=== PATIENT | female | born 1980 | race Caucasian/White ===

== ENCOUNTER 2021-06-02 16:37 | Emergency (ER) | payer OTHER, SELFPAY ==
[2021-06-02 17:00] VITALS: BP 148/77; PULSE 84; RESP 20; TEMP 36.7; O2SAT 99
--- NOTE | 2021-06-02 17:13 | ED.FEMALEGU ---
HPI - Female Genitourinary General Chief complaint: Urogenital-Female Stated complaint: UTI Source: patient and RN notes reviewed Limitations: no limitations History of Present Illness HPI Narrative: The overweight patient, previously mostly healthy, presents with urinary symptoms. Patient states she has had gradual onset, since yesterday, , of urinary frequency, urgency and mild dysuria. This is like prior UTIs, unlike remote history of kidney stones. No fever, hematuria, significant LBP, abdominal pain vaginal discharge; surgical history remarkable only for C-sections. Symptoms are mild most noticeable with micturition Related Data Home Medications Medication Instructions Recorded Confirmed sumatriptan succinate 100 mg PO PRN PRN 06/02/21 06/02/21 Allergies Allergy/AdvReac Type Severity Reaction Status Date / Time Penicillins Allergy Unknown Verified 02/17/11 11:17 Sulfa (Sulfonamide Allergy Unknown Verified 02/17/11 11:17 Antibiotics) Review of Systems Review of Systems: The patient has been informed that they may have pre-hypertension or Hypertension based on a BP reading in the department. I recommend that the patient call the primary care provider listed on their discharge instructions or a physician of their choice this week to arrange follow up for further evaluation of possible pre-hypertension or Hypertension General/Constitutional: No weight loss,fever Eyes: N0: Redness,discharge Ears/Nose/Throat: No: Epistaxis,ear discharge Respiratory: Denies: Hemoptysis Gastrointestinal: No Vomiting, Bleeding-rectal Skin: No Lumps, eruption Neurologic: No Focal Weakness,Sz Hematologic: Denies: Petechiae/Purpura Psychiatric: No: Suicida ideationl All Other Systems: Reviewed and Negative PMFSH Past Medical History Medical History Vitamin D deficiency disease Social History Social History Smoking status: Former smoker Alcohol intake: current Comments At time of signature, agree with nursing past medical, surgical, social and family history. There is no relevant family history pertinent to the presenting complaint Exam Narrative: General Appearance: Well nourished/overweight, Conjunctiva clear Mouth/Throat: Normal appearing, Normal lips, Supple Respiratory: Airway patent, No respiratory distress Cardiovascular: RRR Abdomen: Soft, Non-tender, no CVAT Musculoskeletal: Full ROM Skin: Warm, Dry Neurological: A&O x3, Normal affect Course Vital Signs Vital signs: Vital Signs Temperature 98.1 F 06/02/21 17:00 Pulse Rate 84 06/02/21 17:00 Respiratory Rate 20 06/02/21 17:00 Blood Pressure 148/77 H 06/02/21 17:00 Pulse Oximetry 99 06/02/21 17:00 Temperature 98.1 F 06/02/21 17:00 Pulse Rate 84 06/02/21 17:00 Respiratory Rate 20 06/02/21 17:00 Blood Pressure 148/77 H 06/02/21 17:00 Pulse Oximetry 99 06/02/21 17:00 MDM - Female Genitourinary Lab Data Labs: Urine Glucose Negative Reference Range: Negative Urine Bilirubin Negative Reference Range: Negative Urine Ketone Negative Reference Range: Negative Urine Specific Gilmer 1.025 Reference Range:1.001-1.035 Urine Blood 2+ Reference Range: Negative * * Urine pH 6.0 Reference Range: 5.0-9.0 Urine Protein 1+ Reference Range: Negative Urine Urobilinogen
== END 2021-06-02 17:17 | disposition home or self-care (01) ==
PROVIDERS: Emergency Provider Emergency Medicine; PCP Emergency Medicine
DX: N30.00 Acute cystitis without hematuria (principal)
CPT/HCPCS: 81003; 87086; 87088; 99213; G0463

== ENCOUNTER → 2021-06-24 11:48 | Outpatient (CLI) | payer OTHER, SELFPAY ==
--- NOTE | ~2021-06-24 | MM_ITS ---
EXAMINATION: MM screening yaya BI w fred HISTORY: Screening TECHNIQUE: Craniocaudal and mediolateral oblique 3-D tomosynthesis images were obtained and synthetic 2-D images were generated. CAD analysis was submitted and interpreted. COMPARISON: No prior mammogram is available for comparison at this institution. BREAST PARENCHYMAL COMPOSITION: There are scattered areas of fibroglandular density. FINDINGS: There is no evidence of suspicious mass, calcification, or architectural distortion to sugg est malignancy in either breast. There has been no suspicious interval change. IMPRESSION: 1. No mammographic evidence of malignancy. 2. Recommend routine screening mammography in one year. BI-RADS Category 1: Negative Reviewed, dictated and finalized at location A.
== END ==
PROVIDERS: Visit Provider Nurse Practitioner
DX: Z12.31 Encounter for screening mammogram for malignant neoplasm of breast (principal)
CPT/HCPCS: 77063; 77067

== ENCOUNTER 2021-07-28 11:59 | Outpatient (CLI) | payer OTHER, SELFPAY ==
--- NOTE | ~2021-07-28 | XR_ITS ---
EXAMINATION: XR abdomen/kub 1V EXAM DATE: 07/28/2021 12:21 INDICATION: Gross hematuria. TECHNIQUE: Frontal projection(s) of the abdomen for interpretation. There is no prior study for eron nazario. FINDINGS: There is expected amount of colonic stool and gas. No small bowel dilation, nonobstructi ve bowel gas pattern. There are no suspicious calcifications identified. There is no organomegaly suspected. The bones are unremarkable. IMPRESSION: Unremarkable abdomen x-ray exam. Reviewed, dictated and finalized at location A. HELP DESK ASSOCIATE
== END 2021-07-28 12:00 | disposition home or self-care (01) ==
PROVIDERS: PCP Emergency Medicine; Visit Provider Urology
DX: R31.0 Gross hematuria (principal)
CPT/HCPCS: 74018

== ENCOUNTER 2022-06-13 11:05 | Outpatient (CLI) | payer OTHER, SELFPAY ==
[2022-06-13 19:36] LABS: Basophils Absolute Auto 0.1 K/mm3 (0.0-0.1); Basophils Percent Auto 0.4 % (0.2-1.2); Eosinophils Absolute Auto 0.1 K/mm3 (0-0.3); Eosinophils Percent Auto 0.9 % (0-4.4); Hematocrit 43.4 % (37.0-47.0); Hemoglobin 14.1 g/dL (12.0-15.0); Immature Granulocyte Absolute 0.04 K/mm3 (0.00-0.031); Immature Granulocyte Percent A 0.3 % (0-0.5); Lymphocytes Absolute Auto 4.13 K/mm3 (0.9-3.2); Lymphocytes Percent Auto 31.7 % (18.3-44.2); Mean Corpuscular HGB Conc 32.5 g/dl (32-36); Mean Corpuscular Volume 86.1 fl (80-100); Mean Platelet Volume 9.4 fl (7.4-10.4); Monocytes Absolute Auto 0.7 K/mm3 (0.1-0.6); Monocytes Percent Auto 5.4 % (2.6-8.5); Neutrophils Percent Auto 61.3 % (45.5-73.1); Platelet Count Result 338 k/mm3 (150-375); Red Blood Count 5.04 M/mm3 (4.2-5.4); Red Cell Distribution Width 15.2 % (11.5-14.5)
[2022-06-13 20:10] LABS: Vitamin D 25 Hydroxy 16.4 ng/mL
[2022-06-13 20:23] LABS: Alanine Aminotransferase 26 U/L (6-35); Albumin Level 4.5 g/dL (3.5-5.1); Alkaline Phosphatase 85 U/L (38-126); Anion Gap 10 mmol/L (8-16); Aspartate Amino Transferase 24 U/L (14-36); Bilirubin,Total 0.3 mg/dL (0.2-1.3); Blood Urea Nitrogen 10 mg/dL (7-17); Calcium 8.4 mg/dL (8.4-10.2); Carbon Dioxide 23 mmol/L (22-30); Chloride 104 mmol/L (98-107); Cholesterol 208 mg/dL (0-200); Estimated Glomerular Filt Rate > 60; Glucose 108 mg/dL (65-110); HDL Direct 42 mg/dL; Potassium 3.9 mmol/L (3.4-5.0); Sodium 137 mmol/L (137-145); Triglycerides 150 mg/dL (<150)
[2022-06-13 20:35] LABS: LDL Cholesterol Direct 123 mg/dL
[2022-06-13 20:56] LABS: Thyroid Stimulating Hormone 0.756 uIU/mL (0.465-4.680)
[2022-06-15 13:52] LABS: NIL 0.05 IU/mL; Quantiferon TB Plus, 1T NEGATIVE (NEGATIVE); TB1-NIL 0.02 IU/mL; TB2-NIL 0.04 IU/mL
== END 2022-06-13 11:06 | disposition home or self-care (01) ==
LOC: ANHGOSHLAB 11:09
PROVIDERS: PCP Internal Medicine; Visit Provider Clinical Nurse Specialist
DX: Z11.1 Encounter for screening for respiratory tuberculosis (principal); Z13.29 Encounter for screening for other suspected endocrine disorder; E55.9 Vitamin D deficiency, unspecified; Z13.220 Encounter for screening for lipoid disorders; F41.9 Anxiety disorder, unspecified
CPT/HCPCS: 36415; 80053; 80061; 82306; 84443; 85025; 86480

== ENCOUNTER → 2023-01-05 11:52 | Outpatient (CLI) | payer OTHER, SELFPAY ==
--- NOTE | ~2023-01-05 | MM_ITS ---
EXAMINATION: MM screening yaya BI w fred HISTORY: Screening mammogram TECHNIQUE: Craniocaudal and mediolateral oblique 3-D tomosynthesis images were obtained and synthetic 2-D images were generated. CAD analysis was submitted and interpreted. COMPARISON: 06/24/2021 BREAST PARENCHYMAL COMPOSITION: The breasts are heterogeneously dense, which may obscure small masses . FINDINGS: A stable low-density mass is noted in the anterior third of the upper outer right breast. N o suspicious mass, calcification, or architectural distortion are identified in either breast to sugg est malignancy. There has been no suspicious interval change. IMPRESSION: 1. No mammographic evidence of malignancy. 2. Recommend routine screening mammography in one year. BI-RADS Category 2: Benign finding(s). Reviewed, dictated and finalized at location A.
== END ==
PROVIDERS: PCP Clinical Nurse Specialist; Visit Provider Nurse Practitioner
DX: Z12.31 Encounter for screening mammogram for malignant neoplasm of breast (principal)
CPT/HCPCS: 77063; 77067

== ENCOUNTER 2023-11-12 11:01 | Outpatient (CLI) | payer OTHER, SELFPAY ==
[2023-11-12 14:06] LABS: Alanine Aminotransferase 25 U/L (6-35); Albumin Level 4.4 g/dL (3.5-5.1); Alkaline Phosphatase 90 U/L (38-126); Anion Gap 5 mmol/L (8-16); Aspartate Amino Transferase 47 U/L (14-36); Bilirubin,Total 0.4 mg/dL (0.2-1.3); Blood Urea Nitrogen 12 mg/dL (7-17); Calcium 9.6 mg/dL (8.4-10.2); Carbon Dioxide 30 mmol/L (22-30); Chloride 103 mmol/L (98-107); Cholesterol 204 mg/dL (0-200); Estimated Glomerular Filt Rate > 60; Glucose 154 mg/dL (65-110); HDL Direct 44 mg/dL; Potassium 4.4 mmol/L (3.4-5.0); Sodium 138 mmol/L (137-145); Triglycerides 114 mg/dL (<150)
[2023-11-12 14:09] LABS: Basophils Percent Auto 0.3 % (0.2-1.2); Eosinophils Absolute Auto 0.1 K/mm3 (0-0.3); Hematocrit 46.6 % (37.0-47.0); Hemoglobin 14.8 g/dL (12.0-15.0); Immature Granulocyte Absolute 0.06 K/mm3 (0.00-0.031); Immature Granulocyte Percent A 0.5 % (0-0.5); Lymphocytes Absolute Auto 3.85 K/mm3 (0.9-3.2); Lymphocytes Percent Auto 30.4 % (18.3-44.2); Mean Corpuscular HGB Conc 31.8 g/dl (32-36); Mean Corpuscular Hemoglobin 27.1 pg (26-34); Mean Corpuscular Volume 85.2 fl (80-100); Mean Platelet Volume 10.3 fl (7.4-10.4); Monocytes Absolute Auto 0.7 K/mm3 (0.1-0.6); Monocytes Percent Auto 5.8 % (2.6-8.5); Neutrophils Absolute Auto 7.9 K/mm3 (1.3-6.7); Platelet Count Result 316 k/mm3 (150-375); Red Blood Count 5.47 M/mm3 (4.2-5.4); Red Cell Distribution Width 15.6 % (11.5-14.5); White Blood Count 12.7 K/mm3 (4.5-10.0)
[2023-11-12 14:17] LABS: LDL Cholesterol Direct 135 mg/dL
[2023-11-12 15:03] LABS: Vitamin D 25 Hydroxy 59.5 ng/mL
[2023-11-12 18:35] LABS: Hemoglobin A1C 8.1 % (<5.7)
== END 2023-11-12 11:02 | disposition home or self-care (01) ==
LOC: ANHGOSHLAB 11:03
PROVIDERS: PCP Internal Medicine; Visit Provider Clinical Nurse Specialist
DX: E55.9 Vitamin D deficiency, unspecified (principal); R53.83 Other fatigue; Z13.220 Encounter for screening for lipoid disorders; Z13.29 Encounter for screening for other suspected endocrine disorder; R73.9 Hyperglycemia, unspecified
CPT/HCPCS: 36415; 80053; 80061; 82306; 83036; 84443; 85025

== ENCOUNTER 2024-03-31 13:31 | Outpatient (CLI) | payer OTHER, SELFPAY ==
--- NOTE | ~2024-03-31 | MM_ITS ---
EXAMINATION: MM screening yaya BI w fred HISTORY: Screening TECHNIQUE: Craniocaudal and mediolateral oblique 3-D tomosynthesis images were obtained and synthetic 2-D images were generated. CAD analysis was submitted and interpreted. COMPARISON: Comparison to multiple prior studies sequentially, with oldest reviewed study dated 12/2020. BREAST PARENCHYMAL COMPOSITION: Dense: The breasts are heterogeneously dense, which may obscure small masses FINDINGS: There is no evidence of suspicious mass, calcification, or architectural distortion to sugg est malignancy in either breast. There has been no suspicious interval change. IMPRESSION: 1. No mammographic evidence of malignancy. 2. Recommend routine screening mammography in one year. BI-RADS Category 1: Negative Reviewed, dictated and finalized at location B.
== END 2024-03-31 13:32 ==
PROVIDERS: PCP Clinical Nurse Specialist; Visit Provider Nurse Practitioner
DX: Z12.31 Encounter for screening mammogram for malignant neoplasm of breast (principal)
CPT/HCPCS: 77063; 77067

== ENCOUNTER 2024-03-31 15:00 | Outpatient (CLI) | payer OTHER, SELFPAY ==
[2024-03-31 16:51] LABS: Anion Gap 8 mmol/L (4-12); Blood Urea Nitrogen 15 mg/dL (7-17); Calcium 8.9 mg/dL (8.4-10.2); Carbon Dioxide 28 mmol/L (22-30); Chloride 100 mmol/L (98-107); Estimated Glomerular Filt Rate > 60; Glucose 198 mg/dL (65-110); Potassium 3.9 mmol/L (3.4-5.0); Sodium 136 mmol/L (137-145)
[2024-03-31 17:36] LABS: Creatinine Urine 92.6 mg/dL
[2024-03-31 17:39] LABS: MALB Creatinine Ratio 28.9 mg/g (0-30); Microalbumin Urine Random 26.8 mg/L (0-16.7)
[2024-03-31 21:54] LABS: Hemoglobin A1C 7.5 % (<5.7)
== END 2024-03-31 15:01 | disposition home or self-care (01) ==
LOC: ANHGOSHLAB 15:01
PROVIDERS: PCP Clinical Nurse Specialist; Visit Provider Clinical Nurse Specialist
DX: E11.9 Type 2 diabetes mellitus without complications (principal)
CPT/HCPCS: 36415; 80048; 82043; 83036

== ENCOUNTER 2024-09-24 09:08 | Outpatient (CLI) | payer BC, SELFPAY ==
--- OUTSIDE RECORDS SUMMARY | 2024-09-24 09:39 | XMS_ITS | Clinical Summary ---
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 Gender Identity Not on file Sexual Orientation Not on file Plan of Treatment Health Maintenance Due Date Last Done Comments Hepatitis C Virus (HCV) Screening 1981 TdaP Immunization 1981 Hepatitis B Immunization (1 of 3 - 19+ 3-dose series) 2000 Pap Smear 2002 Cervical Cancer Screening (CCS) 2011 HPV/Cotest 2011 Discussion re Starting/Frequ ency of Mammograms 2021 Influenza Immunization (#1) 2024 SARS-COV-2 Immunization ( season) 2024 11/17/2020 Respiratory Syncytial Virus (RSV) Immunization (Adult) (1 - 1-dose 75+ series) 2056 Meningococcal Immunization (ACWY) Aged Out No longer eligible based on patient's age to complete this topic Pneumococcal Immunization Combined Aged Out No longer eligible based on patient's age to complete this topic Rotavirus Immunization Aged Out No lo nger eligible based on patient's age to complete this topic
--- OUTSIDE RECORDS SUMMARY | 2024-09-24 09:39 | XMS_ITS | Referral Summary ---
Author Organization [facility] Address [address] [place] [address] Care Team Providers Care Bench Tool Maker Name Role Phone Jaswinder Do MD Primary Care Provider [phone] Source Comments [facility],non-owned Affiliates and Associated Physician Practices is amultiple site organization consisting of ambulatory clinics and hospital sitesin [place], [place], [place] and [place]. This disclosure is being madepursuant to the Care Everywhere program and may not contain all information available regarding this patient. Last updated 18.[facility] Allergies Active Allergy Reactions Criticality Noted Date Comments Penicillins Urticaria Medium 11/26/2017 Sulfa Drugs Urticaria Medium 11/26/2017 Medications * Be aware that medications may not be up to date on this document. Alwaysverify current medications with the patient. Medication Sig Dispensed Refills Start Date End Date Status SUMAtriptan Succinate (IMITREX PO) Active Topiramate (TOPAMAX PO) A ctive Social History Tobacco Use Types Packs/Day Years Used Date Smoking Tobacco: Former Smokeless Tobacco: Never Tobacco Cessation:Counseling Given: Yes Sex and Gender Information Value Date Recorded Sex Assigned at Not on file Gender Identity Not on file Sexual Orientation Not on file Last Filed Vital Signs Vital Sign Reading Time Taken Comments Blood Pressure 124/80 05/13/2020 11:28 AM CDT Pulse 86 05/13/2020 11:28 AM CDT Temperature 37 ??C (98.6 ??F) 05/13/2020 11:28 AM CDT Respiratory Rate 18 05/13/2020 11:28 AM CDT Oxygen Saturation 98% 05/13/2020 11:28 AM CDT Inhaled Oxygen Concentration - - Weight 104.3 kg (230 lb) 05/13/2020 11:28 AM CDT Height 154.9 cm (5' 1 ) 05/13/2020 11:28 AM CDT Body Mass Index 43.46 05/13/2020 11:28 AM CDT Plan of Treatment Not on file Administered Medications Care Teams Bench Tool Maker Relationship Specialty Start Date End Date Jaswinder Do MD [address] [place] [address] [address] [place] [address] PCP - General Internal Medicine 11/26/17
--- OUTSIDE RECORDS SUMMARY | 2024-09-24 09:39 | XMS_ITS | Patient Health Summary ---
Author Organization [facility] Address [address] [facility] [place] [address] Care Team Providers Care It Program Engagement Director Name Role Phone Jaswinder Do MD Primary Care Provider [phone] Note from [facility],non-owned Affiliates and Associated Physician Practices is amultiple site organization consisting of ambulatory clinics and hospital sitesin [place], [place], [place] and [place]. This disclosure is being madepursuant to the Care Everywhere program and may not contain all information available regarding this patient. Last updated 18.[facility] Allergies * Penicillins(Urticaria) -Medium Criticality * Sulfa Drugs(Urticaria) -Medium Criticality Medications * Be aware that medications may not be up to date on this document. Alwaysverify current medications with the patient. * SUMAtriptan Succinate (IMITREX PO) * Topiramate (TOPAMAX PO) Social History Tobacco Use Types Packs/Day Years [...] Mass Index 43.46 05/13/2020 11:28 AM CDT Procedures * SKIN TEST PPD - POINT OF CARE(Performed 05/13/2020) Performed for PPD screening test * SKIN TEST PPD - POINT OF CARE(Performed 11/28/2017) Performed for Screening for tuberculosis Results * (ABNORMAL) SKIN TEST PPD - POINT OF CARE (05/13/2020 11:55 AM CDT) Only the most recent of2 resultswithin the time period is included. PPD 10ml, abnormal Other MISCELLANEOUS SAMPLE S / Unknown 05/13/2020 11:55 AM CDT Silvano Antune[facility] [facility] - POINT OF CA RE ORDERABLES Care Teams It Program Engagement Director Relationship Specialty Start Date End Date Jaswinder Do MD [address] [place] [id number] PCP - General Internal Medicine 11/26/17
--- OUTSIDE RECORDS SUMMARY | 2024-09-24 09:39 | XMS_ITS | Clinical Summary ---
Author Organization [facility] Address [address] [place] [id number] Care Team Providers Care Alumni Coordinator Name Role Phone Unavailable Primary Care Provider Unavailabl e Social History Tobacco Use Types Packs/Day Years Used Date Smoking Tobacco: Never Assessed Comments Unknown Sex and Gender Information Value Date Recorded Sex Assigned at Not on file Legal Sex Female 7:48 PM CDT Gender Identity Not on file Sexual Orientation Not on file Plan of Treatment Health Maintenance Due Date Last Done Comments Cervical Cancer Screening Pa p Smear (Age 30 to 64) Every 3 Years 1981 Annual Physical 1984 Hepatitis C 1999 DTaP, Tdap and Td Vaccines ( 1 - Tdap) 2000 Hepatitis B Vaccines (1 of 3 - 19+ 3-dose series) 2000 Cervical Cancer Screening Pa p with HPV Testing (Age 30 to 64) Every 5 Years 2011 Cervical Cancer Screening with HPV 2011 Mammogram Screening 2021 COVID-19 Vaccine ( - 2023-2 5 season) 2024 Influenza Adult (#1) 2024 HPV Vaccines Aged Out No longer eligi ble based on patient's age to complete this topic Meningococcal B Vaccine Aged Out No l onger eligible based on patient's age to complete this topic Meningococcal Vaccine Aged Out No osito pau eligible based on patient's age to complete this topic Pneumococcal Vaccine: Pediat rics (0 to 5 Years) and At-Risk Patients (6 to 64 Years) Aged Out No longer eligible b ased on patient's age to complete this topic RSV Immunizations Under 20 Months Aged Out No longer eligible based on patient's age to complete this topic
--- OUTSIDE RECORDS SUMMARY | 2024-09-24 09:40 | XMS_ITS | Clinical Summary ---
Author Organization [facility] Address [address] [place] [address] Care Team Providers Care Instrument Person Name Role Phone Jaswinder Do MD Primary Care Provider [phone] Source Comments [facility],non-owned Affiliates and Associated Physician Practices is amultiple site organization consisting of ambulatory clinics and hospital sitesin [place], [place], [place] and [place]. This disclosure is being madepursuant to the Care Everywhere program and may not contain all information available regarding this patient. Last updated 18.[facility] Allergies Active Allergy Reactions Criticality Noted Date Comments Penicillins Urticaria Medium 11/26/2017 Sulfa Drugs Urticaria Medium 11/26/2017 Medications * Be aware that medications may not be up to date on this document. Alwaysverify current medications with the patient. Medication Sig Dispensed Refills Start Date End Date Status SUMAtriptan Succinate (IMITREX PO) Active Topiramate (TOPAMAX PO) A ctive Family History Medical History Relation Name Comments None Known Father None Known Mother Relation Name Status Comments Father Mother Social History Tobacco Use Types Packs/Day Years [...] 05/13/2020 11:28 AM CDT Plan of Treatment Health Maintenance Due Date Last Done Comments LIPID TESTING 1981 MAMMOGRAM 1981 PAP SMEAR 1981 HIV SCREENING 1996 HEPATITIS C SCREENING 05/17/1999 DTAP/TDAP/TD VACCINES (1 - Tdap) 2000 HEPATITIS B VACCINE (1 of 3 - 19+ 3-dose series) 2000 COVID-19 VACCINE ( - 2023-2 5 season) 2024 INFLUENZA VACCINE (#1) 2024 DEPRESSION SCREENING 08/20/2024 ZOSTER VACCINE (1 of 2) 2031 HIB VACCINE Aged Out No longer eligi ble based on patient's age to complete this topic HPV VACCINE Aged Out No longer eligi ble based on patient's age to complete this topic MENINGOCOCCAL (Group B) VACCINE Aged Out No longer eligible based on patient's age to complete this topic MENINGOCOCCAL VACCINE Aged Out No osito pau eligible based on patient's age to complete this topic PNEUMOCOCCAL VACCINE Aged Out No long er eligible based on patient's age to complete this topic Care Teams Instrument Person Relationship Specialty Start Date End Date Jaswinder Do MD Count includes the [facility] [facility] [address] [place], [place] [id number] PCP - General Internal Medicine 11/26/17
[2024-10-02 08:00] VITALS: BMI 42.5
--- NOTE | 2024-10-02 08:00 | P.SLEEP_ITS ---
Sleep Study - Home Unattended Date of Study: 09/24/24 Ordering Provider: JOSE Rutledge Interpreting Provider: Dee Casper DO Home Sleep Study Type: Watch PAT Height: 1.55 m Weight: 102.058 kg Body Mass Index: 42.5 Neck Circumference (inches): 18 Drummond: 11 Reason for Sleep Study Daytime hypersomnia Sleep History The patient is a 44-year-old female that had a sleep study ordered by the pulmonary group for evaluation of sleep apnea. The patient admits to snoring loudly and excessive daytime sleepiness. She does have interruptions in breathing while asleep. She does choke or gasp at night. She denies having trouble breathing on her back. She does have morning headaches. She does have a dry or sore mouth / throat in the morning. She denies nocturnal heartburn. She denies nocturia. She denies having difficulty falling asleep. She does have difficulty staying asleep. She does have difficulty returning to sleep if she wakes up throughout the night. She denies having difficulty waking up too early without alarm. She denies any hypnotic or sedative use. She denies feeling anxious about sleep. She does feel tired or sleepy during the day. She does feel tired in the morning. She does have the urge to fall asleep during the day. She does feel drowsy while driving. She denies sleep paralysis, cataplexy and hypnagogic/ hypnopompic hallucinations. She denies clenching or grinding her teeth. She denies kicking or jerking her legs excessively. She denies having a restless feeling in her legs. The patient goes to bed at midnight on work days and at 1:00 a.m. on his days off. It takes her 45 minutes to fall asleep. She gets 5 hours of sleep on her work days and 6 hours of sleep on her days off. Her sleep is somewhat restorative on her days off. She denies taking any planned naps. She denies dream enactment behavior. She denies sleep walking. She consumes 3-4 cups of caffeinated beverage per day. She smokes 6-20 cigarettes per day. She denies alcohol use. She denies exercising on a regular basis [facility] Past Medical History Medical History Diabetes mellitus Hypertension Obstructive sleep apnea syndrome Vitamin D deficiency disease Social History Social History Smoking status: Current every day smoker (1 Daily ) Tobacco type: cigarettes Additional smoking assessment comments: 4 cigarettes a day per patient Alcohol intake: never Substance use: never Substance use type: does not use Lack of Transportation: No Lack of Food: Never True Current Housing: I Have Housing Concerned About Future Housing: No Difficulty Paying Gas/Electric Bills: No Difficulty Paying for Meds: No Currently Unemployed: No Education: Master's Degree or Higher Difficulty w/ Childcare or Family Care: No Medications Home Medications ?Medication ?Instructions ?Recorded ?Confirmed ?Type fluticasone propionate 50 1 spray intranasal DAILY #16 grams 05/17/22 08/06/24 Rx mcg/actuation nasal spray,suspension (Flonase Allergy Relief) sertraline 100 mg tablet 100 mg PO DAILY #90 tabs 11/12/23 08/06/24 Rx blood-glucose meter,continuous #1 ea 11/28/23 08/06/24 Rx (FreeStyle Sukh 3 [place]) blood sugar diagnostic (FreeStyle #100 ea 03/26/24 08/06/24 Rx Lite Strips) blood-glucose sensor (FreeStyle #6 ea 03/26/24 08/06/24 Rx Sukh 3 Sensor device) pravastatin 10 mg tablet 10 mg PO QHS #90 tabs 03/31/24 08/06/24 Rx metformin 500 mg tablet 500 mg PO BID 06/18/24 08/06/24 History semaglutide 0.25 mg or 0.5 mg (2 0.25 mg subcut WEEKLY 06/18/24 08/06/24 History mg/3 mL) subcutaneous pen injector (Ozempic) sumatriptan succinate 100 mg tablet See Rx Instructions .Route 06/18/24 08/06/24 Rx .COMPLEX #14 tabs metformin 500 mg tablet 500 mg PO BID 08/06/24 08/06/24 History Sleep Procedure The sleep study was completed using AIRVENDPAT a technically adequate device with seven channels: peripheral arterial tone, actigraphy, body position, snore, respiratory movement, pulse oximetry, sleep staging, and heart rate. Prior to using the device, the patient received verbal and written instructions for its application and was provided with the help desk phone number for additional telephonic instruction with 24-hour availability of qualified personnel to answer questions. The study was scored using CMS guidelines. Sleep Architecture The total recording time is 6 hrs, 25 min. The total sleep time is 5 hrs, 52 min. Sleep latency is 17 minutes. REM latency is 92 minutes. The patient had 4 episodes of waking. Sleep architecture shows 4.1% deep sleep, 78.8% light sleep, and (as % Total Sleep Time) showed NREM (Light 78.8%; Deep 4.1%), and a 17.0% stage REM. The patient spent 65.2% of total sleep time in the supine position. Sleep efficiency was 91.43. Respiratory Analysis The overall AHI (pAHI 4%:) is 73.0. The overall AHI (pAHI 3%:) is 111.1. The central AHI is 5.8. The AHI was 111.2 in NREM and 111.0 in REM sleep. The AHI was 117.3 in Supine and 99.6 in Non-supine sleep. Percent of Marcin Hardy respirations is 0.0. Oximetry Data The oxygen desaturation index (STEVO 4%:) is 83.6. The mean saturation is 93%, and the lowest saturation is 76%. Time spent with saturation < 88% is 11.1 minutes. Snoring Profile Snoring average intensity is 56 dB. The patient snored above 45 decibels for 310.2 minutes, 88.1% of sleep time. Cardiac Profile The average pulse rate is 75 beats per minutes. The lowest pulse rate is 57 bpm. The highest pulse rate reported is 97 bpm. Atrial fibrillation was not detected. Premature beats occur <0.1 per minute. Assessment and Plan Assessment and Plan (1) Obstructive sleep apnea syndrome: Code(s): G47.33 - Obstructive sleep apnea (adult) (pediatric) Status: Acute Assessment and Plan: The patient had an overall AHI 73.0 with desaturation down to 76%. The patient had a central apnea index of 5.8 to, which is elevated (normal < 5). This is consistent with severe sleep apnea. Due to the severity of the patient's sleep apnea and the elevated central apnea index, the patient is not a candidate for AutoPAP. I recommend the patient have a CPAP titration with the use of a hypnotic (Lunesta 2-3 mg or Ambien 5-10 mg) to ensure we obtain enough sleep data and find an optimal pressure setting. The patient needs to have an echocardiogram done to rule out cardiogenic causes for an elevated central apnea index. Data The data obtained during this sleep study is adequate for interpretation. Certification This sleep study has been reviewed by a board certified sleep medicine physician.
== END 2024-09-26 12:20 | disposition home or self-care (01) ==
LOC: ANHCSM 09:14
PROVIDERS: PCP Internal Medicine; Visit Provider Physician Assistant
DX: G47.10 Hypersomnia, unspecified (principal); G47.33 Obstructive sleep apnea (adult) (pediatric)
CPT/HCPCS: 95800

== ENCOUNTER 2024-11-13 09:11 | Outpatient (CLI) | payer BC, SELFPAY ==
--- OUTSIDE RECORDS SUMMARY | 2024-11-13 09:53 | XMS_ITS | Clinical Summary ---
Author Organization [facility] Address [address] [place] [id number] Care Team Providers Care Financial Accounting Analyst Name Role Phone Unavailable Primary Care Provider [...]
--- OUTSIDE RECORDS SUMMARY | 2024-11-13 09:53 | XMS_ITS | Clinical Summary ---
Author Organization [facility] [employer] Address [address] [place] [address] Care Team Providers Care It Service Delivery Manager Name Role Phone Jaswinder Do MD Primary Care Provider + [phone] Source Comments [facility] [employer],non-owned Affiliates and Associated Physician Practices is amultiple site organization consisting of ambulatory clinics and hospital sitesin [place] and [place]. This disclosure is being madepursuant to the Care Everywhere program and may not contain all information available regarding this patient. Last updated 18.[facility] [employer] Allergies Active Allergy Reactions Criticality Noted Date [...] 86 05/13/2020 11:28 AM CDT Temperature 37 C (98.6 F) 05/13/2020 11:28 AM CDT Respiratory Rate 18 [...] to complete this topic MENINGOCOCCAL (Group B) VACC INE SHARED DECISION-MAKING Aged Out No longer eligibl e based on patient's age to complete this topic MENINGOCOCCAL GROUPS A/C/Y/W VACCINE Aged Out No longer eligible b ased on patient's age to complete this topic PNEUMOCOCCAL VACCINE Aged Out No long er eligible based on patient's age to complete this topic Care Teams It Service Delivery Manager Relationship Specialty Start Date End Date Jaswinder Do MD [address] [facility] [place] [facility] [address] [place] [address] PCP - General Internal Medicine 11/26/17
--- OUTSIDE RECORDS SUMMARY | 2024-11-13 09:53 | XMS_ITS | Clinical Summary ---
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
--- NOTE | 2024-12-08 09:33 | P.SLEEP_ITS ---
Sleep Study Date of Study: 11/13/24 Ordering Provider: JOSE Rutledge Interpreting Physician: Dee Casper DO Sleep Study Type: CPAP Titration Height: 1.55 m Weight: 102.058 kg Body Mass Index: 42.5 Neck Circumference (inches): 18 [place]: 11 Reason for Sleep Study WatchPAT home sleep test on 09/24/2024 showed an overall AHI of 73.0 with desaturation down to 76%. EMEKA of 5.8. Sleep History The patient is a 44-year-old female that had a sleep study ordered by the pulmonary group for evaluation of sleep apnea. The patient admits to snoring loudly and excessive daytime sleepiness. She does have interruptions in breathing while asleep. She does choke or gasp at night. She denies having trouble breathing on her back. She does have morning headaches. She does have a dry or sore mouth / throat in the morning. She denies nocturnal heartburn. She denies nocturia. She denies having difficulty falling asleep. She does have difficulty staying asleep. She does have difficulty returning to sleep if she wakes up throughout the night. She denies having difficulty waking up too early without alarm. She denies any hypnotic or sedative use. She denies feeling anxious about sleep. She does feel tired or sleepy during the day. She does feel tired in the morning. She does have the urge to fall asleep during the day. She does feel drowsy while driving. She denies sleep paralysis, catap chris and hypnagogic/ hypnopompic hallucinations. She denies clenching or grinding her teeth. She denies kicking or jerking her legs excessively. She denies having a restless feeling in her legs. The patient goes to bed at midnight on work days and at 1:00 a.m. on his days off. It takes her 45 minutes to fall asleep. She gets 5 hours of sleep on her work days and 6 hours of sleep on her days off. Her sleep is somewhat restorative on her days off. She denies taking any planned naps. She denies dream enactment behavior. She denies sleep walking. She consumes 3-4 cups of caffeinated beverage per day. She smokes 6-20 cigarettes per day. She denies alcohol use. She denies exercising on a regular basis [facility] Past Medical History Medical History Diabetes mellitus Hypertension Obstructive sleep apnea syndrome Vitamin D deficiency disease Social History Social History Smoking status: Current every day smoker (1 Daily ) Tobacco type: cigarettes Additional smoking assessment comments: 4 cigarettes a day per patient Alcohol intake: never Substance use: never Substance use type: does not use Lack of Transportation: No Lack of Food: Never True Current Housing: I Have Housing Concerned About Future Housing: No Difficulty Paying Gas/Electric Bills: No Difficulty Paying for Meds: No Currently Unemployed: No Education: Master's Degree or Higher Difficulty w/ Childcare or Family Care: No Medications Home Medications ?Medication ?Instructions ?Recorded ?Confirmed ?Type fluticasone propionate 50 1 spray intranasal DAILY #16 grams 05/17/22 08/06/24 Rx mcg/actuation nasal spray,suspension (Flonase Allergy Relief) blood-glucose,trainman,cont #1 ea 11/28/23 08/06/24 Rx (FreeStyle Sukh 3 [place]) blood sugar diagnostic (FreeStyle #100 ea 03/26/24 08/06/24 Rx Lite Strips) blood-glucose sensor (FreeStyle #6 ea 03/26/24 08/06/24 Rx Sukh 3 Sensor device) pravastatin 10 mg tablet 10 mg PO QHS #90 tabs 03/31/24 08/06/24 Rx metformin 500 mg tablet 500 mg PO BID 06/18/24 08/06/24 History sumatriptan succinate 100 mg tablet See Rx Instructions .Route 06/18/24 08/06/24 Rx .COMPLEX #14 tabs metformin 500 mg tablet 500 mg PO BID 08/06/24 08/06/24 History eszopiclone 2 mg tablet (Lunesta) 2 mg PO ONCE #1 tablet 10/03/24 Rx sertraline 100 mg tablet See Rx Instructions .Route 10/20/24 Rx .COMPLEX #90 tabs tirzepatide 2.5 mg/0.5 mL 2.5 mg (0.5 mL) subcut WEEKLY #2 mL 12/05/24 Rx subcutaneous pen injector (Ernesto) Sleep Procedure A full night CPAP Titration using the [employer] multi-channel system recorded the standard physiologic parameters including EEG, EOG, submentalis EMG, anterior tibialis EMG, EKG, body position, nasal and oral airflow using nasal pressure sensor and thermistor.? Respiratory parameters of chest and abdominal movements were recorded with Respiratory Inductance Plethysmography belts. Oxygen saturation was recorded by pulse oximetry. Video monitoring was also performed. Sleep stages, periodic limb movements, and EEG arousals were scored in 30 second epochs according to the criteria of the AASM Scoring Manual. The Apnea-Hypopnea Index was calculated using [facility] guidelines for definition of hypopnea with 4% O2 desaturations while scoring respiratory events. Sleep Architecture The total recording time was 415.3 minutes.? The total sleep time was 388.0 minutes. Sleep latency was 15.7 minutes. REM latency was 111.0 minutes. Sleep efficiency was 93.4%. The patient had 12 awakenings for an awakening index of 1.9. Wake after Sleep Onset time was 12.0 minutes. The patient spent 12.5 minutes, 3.2% of total sleep time in Stage N1. The patient spent 176.5 minutes, 45.5% in Stage N2. The patient spent 99.0 minutes, 25.5% in Stage N3. The patient spent 100.0 minutes, 25.8% in Stage REM. Respiratory Analysis The patient had 40 hypopneas, 3 obstructive apneas and 8 central apneas for an overall Apnea Hypopnea Index of 7.9 events per hour. The REM Apnea Hypopnea Index was 21.6. The NREM Apnea Hypopnea Index was 3.1. The patient had a Central Apnea Hypopnea Index of 1.2. There was no evidence of Marcin-Hardy Respirations. The patient was started on CPAP 5 cm H2O and titrated to CPAP 16 cm H2O with EPR of 3. The patient was able to fall asleep starting on CPAP 5 cm H2O. The patient was able to achieve REM sleep starting on CPAP 8 cm H2O. The patient was able to achieve a residual AHI less than 5 with both NREM and REM sleep on multiple pressure settings. On CPAP 16 cm H2O with EPR of 3, the patient spent 37.5 minutes in NREM and 14 minutes in REM with 1 central apnea and 2 hypopneas, resulting in an AHI of 3.5. The patient had a sleep efficiency of 97.2% on this pressure setting. Arousals There were 68 total arousals for an arousal index of 10.5. There were 47 spontaneous arousals for an index of 7.3. ?There were 11 arousals due to respiratory events for an index of 1.7. There were 0 arousals due to periodic limb movements for an index of 0.? There were 12 arousals due to isolated limb movements for an index of 1.9. Periodic Limb Movements The patient had 43 isolated limb movements with an index of 6.6. The patient had 0 periodic limb movements with index of 0. Patient had a total of 43 limb movements with a total limb movement index of 6.6. Oximetry Data The patient had an average oxygen saturation of 93.0% in sleep with a minimum oxygen saturation of 82.0% and a maximum oxygen saturation of 96.0%. The patient had 51 oxygen desaturations that were 4% or greater resulting in an Oxygen Desaturation Index of 7.9.? The patient spent 2.8 minutes, 0.7% of total sleep time with an oxygen saturation below 88%. Snoring Profile Moderate snoring was present in the beginning of the study. The snoring resolved once the patient was titrated to 14 cm H2O. Cardiac Profile The EKG showed normal sinus rhythm. No arrhythmias or premature beats were seen. The patient had an average pulse rate of 72.8 bpm with a minimum pulse rate of 62.0 bpm and a maximum pulse rate of 89.0 bpm. ? EEG Profile No signs of seizure activity seen. Assessment and Plan Assessment and Plan (1) Obstructive sleep apnea syndrome: Code(s): G47.33 - Obstructive sleep apnea (adult) (pediatric) Status: Acute Assessment and Plan: The patient was started on CPAP 5 cm H2O and titrated to CPAP 16 cm H2O with EPR of 3. The patient's sleep apnea resolved on the final pressure setting with a high sleep efficiency. I recommend that the patient be prescribed CPAP 16 cm H2O with EPR of 3, size medium Resmed AirFit F20 full face mask, CPAP filters/tubing and heated humidity. This should be used with all episodes of sleep.? Compliance should be reviewed within 31-90 days of starting therapy for usage greater than 4 hours per night greater than 70% of the nights. The patient should be asked about symptoms such as?excessive daytime sleepiness, quality of sleep, decreased nocturia, increased?mental functioning such as memory, mood, and concentration. Data The data obtained during this sleep study is adequate for interpretation. Certification This sleep study has been reviewed by a board certified sleep medicine physician.
[2024-12-08 11:36] VITALS: BMI 42.5
== END 2024-11-14 06:28 | disposition home or self-care (01) ==
LOC: ANHCSM 09:16
PROVIDERS: PCP Internal Medicine; Visit Provider Physician Assistant
DX: G47.33 Obstructive sleep apnea (adult) (pediatric) (principal)
CPT/HCPCS: 95811

== ENCOUNTER 2025-01-06 17:50 | Emergency (ER) | payer BC, SELFPAY ==
--- OUTSIDE RECORDS SUMMARY | 2025-01-06 17:52 | XMS_ITS | Clinical Summary ---
Author Organization [facility] [employer] Address [address] [place] [address] Care Team Providers Care Objective C Developer Name Role Phone Jaswinder Do MD Primary Care Provider + [phone] Source Comments [facility] [employer],non-owned Affiliates and Associated Physician Practices is amultiple site organization consisting of ambulatory clinics and hospital sitesin [place], [place], [place] and [place]. This disclosure is being madepursuant to the Care Everywhere program and may not contain all information available regarding this patient. Last updated 18.[facility] [employer] Allergies Active Allergy Reactions Criticality Noted Date Comments Penicillins Urticaria Medium 11/26/2017 Sulfa Drugs Urticaria Medium 11/26/2017 Medications * Be aware that medications may not be up to date on this document. Alwaysverify current medications with the patient. SUMAtriptan Succinate (IMITREX PO) Active Topiramate (TOPAMAX PO) Active Family History Medical History Relation Name Comments None Known Father None Known Mother Relation Name Status Comments Father Mother Social History Tobacco Use Types Packs/Day Years Used Date Smoking Tobacco: Former Smokeless Tobacco: Never Tobacco Cessation:Counseling Given: Yes Comments No Sex and Gender Information Value Date Recorded Sex Assigned at Not on file Legal Sex Female 10:01 AM CDT Gender Identity Not on file Sexual [...] Done Comments LIPID TESTING 1981 MAMMOGRAM 1981 HIV SCREENING 1996 HEPATITIS C SCREENING 05/17/1999 DTAP/TDAP/TD VACCINES (1 - Tdap) 2000 HEPATITIS B VACCINE (1 of 3 - 19+ 3-dose series) 2000 COVID-19 VACCINE (1 - 2023-2 5 season) 2024 DEPRESSION SCREENING 08/20/2024 INFLUENZA VACCINE (Season Ended) 2025 ZOSTER VACCINE (1 of 2) 2031 HIB [...] on patient's age to complete [place] [id number] [facility] Care Teams Objective C Developer Relationship Specialty Start Date End Date Jaswinder Do MD [address] [address] PCP - General Internal Medicine 11/26/17
--- OUTSIDE RECORDS SUMMARY | 2025-01-06 17:52 | XMS_ITS | Clinical Summary ---
Author Organization 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
--- NOTE | 2025-01-06 17:54 | ED_ITS ---
HPI - Dental/Oral General Chief complaint: Dental/Oral Stated complaint: swolen cheeks/oral sore/abscess Time Seen by Provider: 01/06/25 17:53 Source: patient Mode of arrival: ambulatory Limitations: no limitations History of Present Illness HPI Narrative: Patient is a 44-year-old female who presents with right upper dental pain for few days. States it is broken and is trying to get in to the dentist for 2 weeks. Also reports minor right cheek swelling this morning. Denies any fever, chills, nausea, vomiting, diarrhea, congestion with sore throat, cough. Related Data Home Medications ?Medication ?Instructions ?Recorded ?Confirmed ?Last Taken ?Type metformin 500 mg tablet 500 mg PO BID 08/06/24 01/06/25 Unknown History Allergies Allergy/AdvReac Type Severity Reaction Status Date / Time Penicillins Allergy Mild Hives Verified 01/06/25 18:08 Sulfa (Sulfonamide Allergy Mild Hives Verified 01/06/25 18:08 Antibiotics) Review of Systems Review of Systems: All systems reviewed & are unremarkable except as noted in HPI and below Constitutional: Constitutional: Denies body ache(s), Denies fever(s), Denies headache(s), Denies malaise and Denies weakness Eyes: Eyes: Denies loss of vision ENT: Denies otalgia, Reports facial pain (jaw), Denies headache(s), Denies nasal discharge, Denies sinus pain and Denies sore throat Cardiovascular: Cardiovascular: Denies chest pain, Denies irregular heart rhythm and Denies dyspnea Respiratory: Respiratory: Denies dyspnea Gastrointestinal: Gastrointestinal: Denies abdominal pain, Denies melena, Denies hematochezia, Denies diarrhea, Denies nausea and Denies vomiting Musculoskeletal: Musculoskeletal: Denies back pain, Denies myalgias and Denies arthralgias Integumentary/Breasts: Skin/Breast: Denies pruritus and Denies rash Neurologic: Denies headache(s), Denies loss of vision and Denies weakness Psychiatric: Psychiatric: Reports no additional psychiatric complaints PMFSH Past Medical History Medical History Diabetes mellitus Hypertension Obstructive sleep apnea syndrome Vitamin D deficiency disease Social History Social History Smoking status: Current every day smoker (1 Daily ) Tobacco type: cigarettes Additional smoking assessment comments: 4 cigarettes a day per patient Alcohol intake: never Substance use: never Substance use type: does not use Lack of Transportation: No Lack of Food: Never True Current Housing: I Have Housing Concerned About Future Housing: No Difficulty Paying Gas/Electric Bills: No Difficulty Paying for Meds: No Currently Unemployed: No Education: Master's Degree or Higher Difficulty w/ Childcare or Family Care: No Comments At time of signature, agree with nursing past medical, surgical, social and family history. There is no relevant family history pertinent to the presenting complaint. Exam Const: General: cooperative, healthy appearing, comfortable, no acute distress and well nourished Nutritional Appearance: well nourished Orientation/consciousness: patient oriented x3 Limitations: no limitations HENMT: Head: normal to inspection, normocephalic and atraumatic Ears: hearing grossly normal bilaterally, external ears normal, TM's normal bilaterally and mastoids normal bilaterally Face/Nose/Sinus: Normal external nose present, normal facial exam and face symmetric Face and sinus: normal facial exam and face symmetric Mouth: Yes Normal oral and palatal mucosa present, Yes lip normal, Yes tongue normal, Yes Normal salivary glands and ducts present and Yes moist mucous membranes Teeth and gingiva: abnormal tooth and associated gingiva upper right first molar tender, with associated gingival edema, dentin fractured and pulp exposed, caries and poor dentition Other: The tooth in question is very carious and the gum is swollen and tender around it. There is no facial swelling, cervical or submandibular lymphadenopathy. The patient appears uncomfortable and in pain. Eyes: General: appearance normal, both eyes and all related structures Alignment and Position: alignment normal and position normal Periorbital: periorbital findings normal Eyelids: eyelids normal Pupils: Equal, round and reactive pupils present EOM: EOMs intact bilaterally Neck: Neck: normal visual inspection, full ROM, no lymphadenopathy and supple Chest: Chest palpation & inspection: normal inspection of the chest Resp: Effort & Inspection: normal respiratory effort and able to speak in complete sentences Auscultation: clear to auscultation bilaterally Cardio: Rate: regular rate Rhythm: regular rhythm Heart sounds: S1 normal heart sound present and S2 normal heart sound present GI: Inspection: normal to inspection Skin: General skin exam: normal color and no rashes or lesions noted Neuro: General: patient oriented x3 and moves all extremities Cranial nerves: Yes Equal, round and reactive pupils present Speech: normal speech Gait exam (Neuro): Normal gait present Extrem: General: normal to inspection, full ROM and no edema Psych: Appearance: grossly normal and well kempt Mental Status: mental status grossly normal Speech and movement: Normal speech and movement present Affect: normal affect Attitude: cooperative Thought process: Normal thought process present Course Course Emergency Course: Patient is aware of diagnosis, understands and agrees to treatment plan. Anticipatory guidance given. Patient agrees to follow-up as directed and is aware of reasons to seek care at the emergency department. Portions of this record may have been created with voice recognition software Level of Care: Express Care Visit Vital Signs Vital signs: Vital Signs Temperature 36.4 C 01/06/25 17:59 Pulse Rate 91 01/06/25 17:59 Respiratory Rate 16 01/06/25 17:59 Blood Pressure 144/75 H 01/06/25 17:59 Pulse Oximetry 98 01/06/25 17:59 Oxygen Delivery Room Air 01/06/25 17:59 Temperature 36.4 C 01/06/25 17:59 Pulse Rate 91 01/06/25 17:59 Respiratory Rate 16 01/06/25 17:59 Blood Pressure 144/75 H 01/06/25 17:59 Pulse Oximetry 98 01/06/25 17:59 Oxygen Delivery Room Air 01/06/25 17:59 Reviewed MDM - Dental/Oral MDM Narrative Medical decision making narrative: Patients pain and complaint coupled with physical findings are consistant with dentalgia. There are no focal signs of space occupying lesions that are compromising to the airway; no dysphagia, odynophagia, dysphonia, or dyspnea. No uvular deviation or soft palate edema. Patient is non-toxic appearing. The floor of the mouth is soft with no signs of Jeff's Angina; no induration below mandible, no neck pain. Patient is without trismus or drooling and able to swallow secretions. Patient is felt appropriate for discharge home with dental follow up. Differential Diagnosis Differential diagnosis: Likely gingival abscess, dental caries, toothache and dental abscess Medical Records Attestation: I reviewed the patient's medical records. Discharge Plan Discharge Clinical Impression: Dental abscess Patient Disposition: Home Condition: Stable Instructions: Dental Abscess (ED) Additional Instructions: Take antibiotic until it's gone. Brushing teeth at least twice daily with gentle flossing. Avoid temperature extremes---when you eat. Salt gargle to rinse your mouth after every meal You may apply ice to the face to reduce pain/swelling. For pain, you may take: For pain, you may take: Tylenol 650-1000mg by mouth every 4-6 hours. Do not exceed 4000mg in 24 hours. Advil (Ibuprofen) 600 mg by mouth every 6 hours. Do not exceed 2400mg in 24 hours. 8 AM: Tylenol 11 AM: Ibuprofen 2 PM: Tylenol 5 PM: Ibuprofen 8 PM: Tylenol 11 PM: Ibuprofen 2 AM: Tylenol 5 AM: Ibuprofen Also, recommend regular dental check up one-two times a year to prevent tooth decay and other periodontal disease. Follow-up with the dentist as soon as possible--see the list provided Your blood pressure was elevated above 120/80 today at Urgent Care. This puts you above the threshold for follow up visit with a primary care provider. High blood pressure does not usually cause any symptoms, however it may lead to kidney failure, stroke, heart disease just to name a few if untreated . Many people are anxious when seeing a provider or nurse. As a result, you are not diagnosed with hypertension at this time unless your blood pressure is persistently high at two office visits at least one week apart. Some things that can help lower blood pressure are lifestyle modifications, such as light exercise, decreased salt in diet, and weight loss. It is important to follow up with a PCP about this within 1 week. Patient Language: Kiswahili Prescriptions: New amoxicillin-pot clavulanate 875-125 mg tablet 1 tablet PO Q12H 14 Days Qty: 28 0RF No Action fluticasone propionate [Flonase Allergy Relief] 50 mcg/actuation spray,suspension 1 spray intranasal DAILY Qty: 16 0RF Rx Instructions: administer into each nostril metformin 500 mg tablet 500 mg PO BID (DME) FreeStyle Sukh 3 [place] Misc See Rx Instructions .Route Qty: 1 0RF Rx Instructions: As directed sumatriptan succinate 100 mg tablet See Rx Instructions .ROUTE .COMPLEX Qty: 14 12RF Dose Instruction: TAKE 1 TABLET BY MOUTH NEEDED FOR MIGRAINE HEADACHE DIRECTED Rx Instructions: TAKE 1 TABLET BY MOUTH NEEDED FOR MIGRAINE HEADACHE DIRECTED (DME) FreeStyle Sukh 3 Sensor Device See Rx Instructions .Route Qty: 6 2RF Rx Instructions: To check blood sugar three times per day (DME) FreeStyle Lite Strips Strip See Rx Instructions .Route Qty: 100 5RF Rx Instructions: Use to check blood sugars 3 times daily sertraline 100 mg tablet See Rx Instructions .ROUTE .COMPLEX Qty: 90 0RF Dose Instruction: TAKE 1 TABLET BY MOUTH DAILY Rx Instructions: TAKE 1 TABLET BY MOUTH DAILY Mounjaro 2.5 mg/0.5 mL pen injector 2.5 mg subcut WEEKLY Qty: 2 0RF Rx Instructions: for 4 weeks Follow-up/Referrals: Velma Velazquez, LACE INSPECTOR-C [Primary Care Provider] - 3 Days Time of Disposition: 18:27
[2025-01-06 17:59] VITALS: BP 144/75; PULSE 91; RESP 16; TEMP 36.4; O2SAT 98
== END 2025-01-06 18:29 | disposition home or self-care (01) ==
PROVIDERS: Emergency Provider Nurse Practitioner Family; PCP Clinical Nurse Specialist
DX: K04.7 Periapical abscess without sinus (principal); E11.9 Type 2 diabetes mellitus without complications; I10 Essential (primary) hypertension; E55.9 Vitamin D deficiency, unspecified
CPT/HCPCS: 99213; G0463

== ENCOUNTER 2025-06-22 12:33 | Outpatient (CLI) | payer BC, SELFPAY ==
--- OUTSIDE RECORDS SUMMARY | 2025-06-22 13:43 | XMS_ITS | Clinical Summary ---
Author Organization [facility] Address [address] [place] [id number] Care Team Providers Care Senior Ui Web Developer Name Role Phone Unavailable Primary Care Provider [...] of 3 - 19+ 3-dose series) 2000 HPV Vaccines (1 - 3-dose SCD M series) 2008 Cervical Cancer Screening Pa p with HPV Testing (Age 30 to 64) Every 5 Years 2011 Cervical Cancer Screening with HPV 2011 Mammogram Screening 2021 COVID-19 Vaccine (2024-2 6 season) 2025 Influenza Adult (#1) 2025 Hepatitis A Vaccines Aged Out No long er eligible based on patient's age to complete this topic Meningococcal B Vaccine Aged Out No l onger eligible based on patient's age to complete this topic Meningococcal Vaccine Aged Out No osito pau eligible based on patient's age to complete this topic Pneumococcal Vaccine: Pediat rics (0 to 5 Years) and At-Risk Patients (6 to 49 Years) Aged Out No longer eligible b ased on patient's age to complete this topic RSV Immunizations Under 20 Months Aged Out No longer eligible based on patient's age to complete this topic
--- OUTSIDE RECORDS SUMMARY | 2025-06-22 13:43 | XMS_ITS | Clinical Summary ---
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
--- OUTSIDE RECORDS SUMMARY | 2025-06-22 13:43 | XMS_ITS | Clinical Summary ---
Author Organization [facility] Address [address] [place] [address] Care Team Providers Care Rn Mds Name Role Phone Jaswinder Do MD Primary Care Provider [phone] Source Comments [facility],non-owned Affiliates and Associated Physician Practices is amultiple site organization consisting of ambulatory clinics and hospital sitesin [place], [place], [place] and [place]. This disclosure is being madepursuant to the Care Everywhere program and may not contain all information available regarding this patient. Last updated 18.[facility] Allergies Active Allergy Reactions Criticality Noted Date [...] 11:28 AM CDT Height 154.9 cm (5' 1) 05/13/2020 11:28 AM CDT Body Mass Index 43.46 05/13/2020 11:28 AM CDT Plan of Treatment Health Maintenance Due Date Last Done Comments LIPID TESTING 1981 MAMMOGRAM 1981 HIV SCREENING 1996 HEPATITIS C SCREENING 05/17/1999 DTAP/TDAP/TD VACCINES (1 - Tdap) 2000 HEPATITIS B VACCINE (1 of 3 - 19+ 3-dose series) 2000 HPV VACCINE (1 - 3-dose SCDM series) 2008 DEPRESSION SCREENING 08/20/2024 COVID-19 VACCINE (1 - 2023-2 5 season) 2025 INFLUENZA VACCINE (#1) 2025 ZOSTER VACCINE (1 of 2) 2031 [...] patient's age to complete this [place] [address] [facility] Care Teams Rn Mds Relationship Specialty Start Date End Date Jaswinder Do MD [address] [phone] PCP - General Internal Medicine 11/26/17
[2025-06-22 19:16] LABS: Hematocrit 45.2 % (37.0-47.0); Hemoglobin 14.2 g/dL (12.0-15.0); Immature Granulocyte Percent A 0.3 % (0-0.5); Lymphocytes Absolute Auto 5.10 K/mm3 (0.9-3.2); Mean Corpuscular HGB Conc 31.4 g/dl (32-36); Mean Corpuscular Hemoglobin 26.9 pg (26-34); Mean Corpuscular Volume 85.8 fl (80-100); Nucleated Red Blood Cells Absolute Auto 0.000 K/mm3 (0.0-0.012); Nucleated Red Blood Cells Perc 0.0 % (0.0-0.2); Platelet Count Result 324 k/mm3 (150-375); Red Blood Count 5.27 M/mm3 (4.2-5.4); White Blood Count 13.2 K/mm3 (4.5-10.0)
[2025-06-22 19:23] LABS: Alanine Aminotransferase 27 U/L (6-35); Albumin Level 4.4 g/dL (3.5-5.1); Alkaline Phosphatase 81 U/L (38-126); Anion Gap 7 mmol/L (4-12); Aspartate Amino Transferase 40 U/L (14-36); Bilirubin,Total 0.4 mg/dL (0.2-1.3); Blood Urea Nitrogen 15 mg/dL (7-17); Calcium 8.9 mg/dL (8.4-10.2); Carbon Dioxide 29 mmol/L (22-30); Chloride 102 mmol/L (98-107); Cholesterol 197 mg/dL (0-200); Estimated Glomerular Filt Rate > 60; Glucose 83 mg/dL (65-110); HDL Direct 40 mg/dL; Potassium 4.4 mmol/L (3.4-5.0); Sodium 138 mmol/L (137-145); Total Protein 7.5 g/dL (6.3-8.2); Triglycerides 108 mg/dL (<150)
[2025-06-22 19:54] LABS: MALB Creatinine Ratio 34.5 mg/g (0-30)
[2025-06-22 19:59] LABS: Thyroid Stimulating Hormone 1.050 uIU/mL (0.465-4.680)
[2025-06-22 20:17] LABS: Vitamin B12 832.0 pg/mL (239-931)
[2025-06-22 20:40] LABS: Hemoglobin A1C 6.4 % (<5.7)
[2025-06-24 14:04] LABS: CRP 1.4 mg/dL (<1.0)
== END 2025-06-22 12:34 | disposition home or self-care (01) ==
LOC: ANHGOSHLAB 12:34
PROVIDERS: PCP Clinical Nurse Specialist; Visit Provider Clinical Nurse Specialist
DX: F41.9 Anxiety disorder, unspecified (principal); I10 Essential (primary) hypertension; E11.9 Type 2 diabetes mellitus without complications; D72.829 Elevated white blood cell count, unspecified; G43.909 Migraine, unspecified, not intractable, without status migrainosus
CPT/HCPCS: 36415; 80053; 80061; 82043; 82607; 82948; 83036; 84443; 85025; 86140